=== PATIENT | female | born 1960 | race Caucasian/White ===

== ENCOUNTER 2021-10-13 09:27 | Inpatient (IN) ==
[2021-10-13] MEDS ORDERED: 0.9 % Sodium Chloride 1,000 ML IVC ONE (10:20)
[2021-10-13] MEDS ORDERED: Ipratropium/Albuterol Neb 3 ML IH ONE ×2 (10:42→14:40)
[2021-10-13 11:11] LABS: ABG Base Excess 0 mEq/L (-2 to 3); ABG HCO3 28 mEq/L (21-27); ABG Oxygen Saturation 84 % (95-98); ABG PCO2 54 mmHg (35-45); ABG PH 7.32 pH Units (7.32-7.45); ABG PO2 54 mmHg (85-104); ABG TCO2 29 mEq/L (20-26)
[2021-10-13 11:40] LABS: Adenovirus Not Detected (Not Detect); Bordetella Pertussis Not Detected (Not Detect); Chlamydophila pneumoniae Not Detected (Not Detect); Coronavirus 229E Not Detected (Not Detect); Coronavirus HKU1 Not Detected (Not Detect); Coronavirus NL63 Not Detected (Not Detect); Coronavirus OC43 Not Detected (Not Detect); Human Metapneumovirus Not Detected (Not Detect); Human Rhinovirus/Enterovirus Not Detected (Not Detect); Influenza A Subtype 2009 H1 Not Detected (Not Detect); Influenza B Not Detected (Not Detect); Mycoplasma pneumoniae Not Detected (Not Detect); Parainfluenza Virus 1 Not Detected (Not Detect); Parainfluenza Virus 2 Not Detected (Not Detect); Parainfluenza Virus 3 Not Detected (Not Detect); Parainfluenza Virus 4 Not Detected (Not Detect); Respiratory Syncytial Virus DETECTED (Not Detect); SARS-CoV-2 Not Detected (Not Detect)
[2021-10-13 12:12] LABS: Basophils # 0.1 K/mcL (0.0-0.2); Basophils % 0.5 %; Eosinophils % 0.3 %; Hematocrit 42.9 % (35.3-44.9); Hemoglobin 12.9 g/dL (11.5-15.4); Immature Granulocytes % 0.7 % (0-4); Lymphocytes # 1.4 K/mcL (0.6-4.6); Lymphocytes % 13.1 %; Mean Corpuscular HGB Conc 30.1 g/dL (31.6-35.5); Mean Corpuscular Hemoglobin 29.4 pg (28.0-33.3); Mean Corpuscular Volume 97.7 fL (83.0-100.0); Mean Platelet Volume 10.6 fL (9.4-12.4); Monocytes # 0.4 K/mcL (0.0-1.3); Monocytes % 4.1 %; Neutrophils # 8.8 K/mcL (1.6-8.9); Platelet Count 221 K/mcL (140-400); Red Blood Count 4.39 M/mcL (3.82-4.97); Red Cell Distribution Width 14.7 % (11.5-14.5); Segmented Neutrophils % 81.3 %; White Blood Count 10.8 K/mcL (4.3-11.1)
[2021-10-13 12:35] LABS: Alanine Aminotransferase 18 Units/L (7-52); Albumin/Globulin Ratio 1.4 (1.1-2.2); Alkaline Phosphatase 105 Units/L (34-104); Aspartate Amino Transferase 20 Units/L (13-39); BUN/Creatinine Ratio 23 (6-26); Bilirubin,Direct 0.1 mg/dL (0.0-0.2); Bilirubin,Indirect 0.2 mg/dL (0.0-1.0); Bilirubin,Total 0.3 mg/dL (0.3-1.0); Blood Urea Nitrogen 25 mg/dL (8-23); Calcium 8.6 mg/dL (8.6-10.3); Carbon Dioxide 28 mEq/L (23-29); Chloride 107 mEq/L (98-107); Globulin 2.9 g/dL (2.4-3.5); Glucose 91 mg/dL (70-105); Osmolality,Calculated 298 (280-300); Potassium 4.5 mEq/L (3.5-5.1); Sodium 142 mEq/L (136-145); Total Protein 6.9 g/dL (6.4-8.9); Troponin I < 0.03 ng/mL (< 0.04); eGFR For African Americans > 60 (> 60); eGFR For Non-African Americans 50 (> 60)
[2021-10-13] MEDS ORDERED: methylPREDNISolone 125 MG/2 ML VIAL IVP ONE (14:40)
[2021-10-13] MEDS ORDERED: Ondansetron 4 MG/2 ML VIAL IVP PRN (16:16)
[2021-10-13] MEDS ORDERED: Acetaminophen 325 MG TABLET PO PRN (16:16)
[2021-10-13] MEDS: MethylPREDNISolone 40 MG/ML VIAL IVP SCH (17:19)
[2021-10-13] MEDS: Gabapentin 300 MG CAPSULE PO SCH ×2 (17:19→20:16)
[2021-10-13] MEDS: Ipratropium/Albuterol Neb 3 ML IH SCH ×3 (18:10→23:33)
[2021-10-14 01:45] LABS: Hematocrit 40.8 % (35.3-44.9); Hemoglobin 11.9 g/dL (11.5-15.4); Mean Corpuscular HGB Conc 29.2 g/dL (31.6-35.5); Mean Corpuscular Hemoglobin 28.6 pg (28.0-33.3); Mean Corpuscular Volume 98.1 fL (83.0-100.0); Mean Platelet Volume 10.3 fL (9.4-12.4); Platelet Count 208 K/mcL (140-400); Red Blood Count 4.16 M/mcL (3.82-4.97); Red Cell Distribution Width 14.6 % (11.5-14.5); White Blood Count 10.1 K/mcL (4.3-11.1)
[2021-10-14 02:00] LABS: Calcium 8.2 mg/dL (8.6-10.3); Potassium 4.7 mEq/L (3.5-5.1)
[2021-10-14] MEDS: Ipratropium/Albuterol Neb 3 ML IH SCH ×6 (04:14→23:19)
[2021-10-14] MEDS: *HR* Enoxaparin 40 MG/0.4 ML SYRINGE SQ SCH (05:13)
[2021-10-14] MEDS: MethylPREDNISolone 40 MG/ML VIAL IVP SCH ×2 (05:14→16:51)
[2021-10-14] MEDS: Furosemide 20 MG TABLET PO SCH (08:33)
[2021-10-14] MEDS: Gabapentin 300 MG CAPSULE PO SCH ×4 (08:33→19:23)
[2021-10-14] MEDS: lisinopriL 10 MG TABLET PO SCH (08:33)
[2021-10-14] MEDS: Loratadine 10 MG TABLET PO SCH (08:33)
[2021-10-14] MEDS: Fluticasone Propionate Nasal 50 MCG/SPRAY BOTTLE NS SCH (11:07)
[2021-10-14] MEDS: Budesonide/Formoterol 160/4.5 1 PUFF INH IH SCH ×2 (11:18→19:28)
[2021-10-14] MEDS: Azithromycin 250 MG TABLET PO SCH (12:21)
[2021-10-15] MEDS: Ipratropium/Albuterol Neb 3 ML IH SCH ×6 (03:39→23:56)
[2021-10-15] MEDS: *HR* Enoxaparin 40 MG/0.4 ML SYRINGE SQ SCH (04:10)
[2021-10-15] MEDS: MethylPREDNISolone 40 MG/ML VIAL IVP SCH ×2 (04:10→16:24)
[2021-10-15] MEDS: Budesonide/Formoterol 160/4.5 1 PUFF INH IH SCH ×2 (07:28→20:01)
[2021-10-15] MEDS: Furosemide 20 MG TABLET PO SCH (07:39)
[2021-10-15] MEDS: lisinopriL 10 MG TABLET PO SCH (07:39)
[2021-10-15] MEDS: Gabapentin 300 MG CAPSULE PO SCH ×4 (07:39→20:51)
[2021-10-15] MEDS: Loratadine 10 MG TABLET PO SCH (07:39)
[2021-10-15] MEDS: Azithromycin 250 MG TABLET PO SCH (07:39)
[2021-10-15] MEDS: Fluticasone Propionate Nasal 50 MCG/SPRAY BOTTLE NS SCH (07:40)
[2021-10-16] MEDS: Ipratropium/Albuterol Neb 3 ML IH SCH ×3 (04:20→11:42)
[2021-10-16 05:19] LABS: Basophils # 0.1 K/mcL (0.0-0.2); Basophils % 0.5 %; Hematocrit 40.3 % (35.3-44.9); Hemoglobin 12.3 g/dL (11.5-15.4); Lymphocytes # 3.4 K/mcL (0.6-4.6); Lymphocytes % 16.8 %; Mean Corpuscular HGB Conc 30.5 g/dL (31.6-35.5); Mean Corpuscular Hemoglobin 29.5 pg (28.0-33.3); Mean Corpuscular Volume 96.6 fL (83.0-100.0); Mean Platelet Volume 10.4 fL (9.4-12.4); Monocytes % 5.1 %; Neutrophils # 14.9 K/mcL (1.6-8.9); Platelet Count 242 K/mcL (140-400); Red Blood Count 4.17 M/mcL (3.82-4.97); Red Cell Distribution Width 14.8 % (11.5-14.5); Segmented Neutrophils % 74.6 %
[2021-10-16 05:46] LABS: BUN/Creatinine Ratio 32 (6-26); Blood Urea Nitrogen 32 mg/dL (8-23); Carbon Dioxide 30 mEq/L (23-29); Chloride 100 mEq/L (98-107); Glucose 173 mg/dL (70-105); Osmolality,Calculated 293 (280-300); Potassium 4.5 mEq/L (3.5-5.1); Sodium 136 mEq/L (136-145); eGFR For African Americans > 60 (> 60); eGFR For Non-African Americans 57 (> 60)
[2021-10-16] MEDS: MethylPREDNISolone 40 MG/ML VIAL IVP SCH (05:54)
[2021-10-16] MEDS: *HR* Enoxaparin 40 MG/0.4 ML SYRINGE SQ SCH (05:54)
[2021-10-16] MEDS: Budesonide/Formoterol 160/4.5 1 PUFF INH IH SCH (07:35)
[2021-10-16] MEDS: Gabapentin 300 MG CAPSULE PO SCH (08:47)
[2021-10-16] MEDS: Loratadine 10 MG TABLET PO SCH (08:47)
[2021-10-16] MEDS: Furosemide 20 MG TABLET PO SCH (08:47)
[2021-10-16] MEDS: Azithromycin 250 MG TABLET PO SCH (08:47)
[2021-10-16] MEDS: lisinopriL 10 MG TABLET PO SCH (08:48)
[2021-10-16] MEDS: Fluticasone Propionate Nasal 50 MCG/SPRAY BOTTLE NS SCH (08:48)
[2021-10-16 10:52] VITALS: BP 131/79; PULSE 73; TEMP 98.5
[2021-10-16 12:08] VITALS: O2SAT 94
== END 2021-10-16 14:30 | disposition home or self-care (01) | DRG 190 ==
LOC: EMEROOARM 09:27 → 3BNU 09:27 → SUATTDRO 19:15
PROVIDERS: ADMIT Internal Medicine; ATTEND Internal Medicine